=== PATIENT | female | born 1990 | race Caucasian/White ===

== ENCOUNTER → 2022-11-05 07:55 | Outpatient (BNVA) | payer OTHER, SELFPAY | PROVIDERS: PCP Pediatrics; Referring Provider Pediatrics; Visit Provider Physician Assistant ==

== ENCOUNTER → 2022-12-17 14:38 | Outpatient (BNVA) | payer OTHER, SELFPAY | PROVIDERS: PCP Pediatrics; Visit Provider Physician Assistant Surgical ==